=== PATIENT | female | born 1995 | race Two or more races ===

== ENCOUNTER 2017-01-15 21:35 | Emergency (ER) | payer OTHER ==
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
[2017-01-15] MEDS ORDERED: ONDANSETRON 4 MG/2 ML VIAL IVP ONE (21:37)
[2017-01-15] MEDS ORDERED: NS 1,000 ML IV ONE (21:37)
[2017-01-15] MEDS ORDERED: ceFAZolin 2 GM/DEXTROSE 100 ML IV ONE (21:38)
[2017-01-15 21:49] LABS: % IMMATURE GRANULYOCYTES 0.3 % (0.0-1.1); ABSOLUTE IMMATURE GRANULOCYTES 0.04 10^3/uL (0.00-0.10); ADD DIFF? NO; ADD MORPH? NO; ADD SCAN? NO; ATYPICAL LYMPHOCYTE FLAG 0 (0-99); FRAGMENT RBC FLAG 0 (0-99); HEMATOCRIT 44.5 % (38.0-47.0); HEMOGLOBIN 14.7 g/dL (12.6-16.3); LEFT SHIFT FLG 0 (0-99); LIPEMIA HEMOLYSIS FLAG 80 (0-99); MEAN CELL HEMOGLOBIN 29.8 pg (27.9-34.1); MEAN CELL VOLUME 90.3 fL (81.5-99.8); MEAN PLATELET VOLUME 10.5 fL (8.7-11.7); PLATELET CLUMPS FLAG 10 (0-99); PLATELET COUNT 335 10^3/uL (150-400); RED BLOOD CELL COUNT 4.93 10^6/uL (4.18-5.33); RED CELL DISTRIBUTION WIDTH 12.7 % (11.5-15.2)
[2017-01-15 21:50] VITALS: RESP 18; O2SAT 97
[2017-01-15] MEDS ORDERED: ACETAMINOPHEN 160 MG/5 ML UDCUP ONE (21:52)
[2017-01-15 22:05] LABS: ANION GAP 16 mEq/L (8-16); CARBON DIOXIDE 21 mEq/l (22-31); CHLORIDE 102 mEq/L (97-110); CREATININE 0.8 mg/dL (0.6-1.0); GLOMERULAR FILTRATION RATE > 60; GLUCOSE 91 mg/dL (70-100); SODIUM 139 mEq/L (134-144)
[2017-01-15] MEDS: HYDROmorphONE/DILAUDID 1 MG/ML INJ IVP ONE ×2 (22:08→23:53)
[2017-01-15] MEDS ORDERED: IOPAMIDOL (ISOVUE-300) 100 ML BTL ONE (22:24)
[2017-01-15] MEDS ORDERED: HYDROmorphONE/DILAUDID 1 MG/ML INJ ONE (23:51)
[2017-01-15] MEDS ORDERED: HYDROmorphONE/DILAUDID 1 MG/ML INJ IVP ONE (23:51)
[2017-01-16] MEDS ORDERED: KETOROLAC 15 MG/1 ML SDV IVP ONE (00:33)
[2017-01-16 01:20] VITALS: BP 130/67; PULSE 77; TEMP 97.7
[2017-01-16] MEDS ORDERED: CEPHALEXIN 500 MG CAP PO ONE (01:22)
[2017-01-16] MEDS ORDERED: CEPHALEXIN 500MG PREPACK#4 BTL TAKEHOME ONE (01:22)
== END 2017-01-16 01:48 | disposition home or self-care (01) ==
LOC: EDUNIT#
PROC: 0HQLXZZ Repair Left Lower Leg Skin, External Approach (ICD-10-PCS; principal; 2017-01-15)
DX: S91.021A Laceration with foreign body, right ankle, initial encounter (principal); T14.8 Other injury of unspecified body region; E86.9 Volume depletion, unspecified; V49.50XA Passenger injured in collision with unspecified motor vehicles in traffic accident, initial encounter; Y92.410 Unspecified street and highway as the place of occurrence of the external cause
CPT/HCPCS: 96365; J0690; J1170; J1885; J2405; L4386; Q9967

== ENCOUNTER 2017-01-18 20:52 | Emergency (ER) | payer OTHER ==
[2017-01-18 21:15] VITALS: RESP 16; TEMP 98.1; O2SAT 97
[2017-01-18] MEDS ORDERED: CEPHALEXIN 500 MG CAP PO ONE (22:34)
[2017-01-18] MEDS ORDERED: SULFAMETHOX/TMP 800/160 MG 1 TAB PO ONE (22:34)
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
[2017-01-18 22:50] VITALS: BP 132/78; PULSE 73
== END 2017-01-18 22:50 | disposition home or self-care (01) ==
DX: T81.4XXA Infection following a procedure, initial encounter (principal); Y82.8 Other medical devices associated with adverse incidents

== ENCOUNTER 2017-01-22 17:23 | Inpatient (IN) | payer OTHER ==
[2017-01-22] MEDS ORDERED: NS 1,000 ML IV ONE (18:11)
[2017-01-22] MEDS ORDERED: ERTAPENEM 1 GM in NS 100 ML IV ONE (18:11)
[2017-01-22] MEDS ORDERED: VANCOMYCIN 1.25 GM in D5W 250 ML IV ONE (18:13)
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
[2017-01-22 18:40] LABS: % IMMATURE GRANULYOCYTES 0.3 % (0.0-1.1); ABSOLUTE IMMATURE GRANULOCYTES 0.02 10^3/uL (0.00-0.10); ADD DIFF? NO; ADD MORPH? NO; ADD SCAN? NO; ATYPICAL LYMPHOCYTE FLAG 20 (0-99); FRAGMENT RBC FLAG 0 (0-99); HEMATOCRIT 42.2 % (38.0-47.0); HEMOGLOBIN 13.8 g/dL (12.6-16.3); LEFT SHIFT FLG 0 (0-99); LIPEMIA HEMOLYSIS FLAG 80 (0-99); MEAN CELL HEMOGLOBIN 29.4 pg (27.9-34.1); MEAN CELL HEMOGLOBIN CONCENTR. 32.7 g/dL (32.4-36.7); PLATELET CLUMPS FLAG 0 (0-99); PLATELET COUNT 349 10^3/uL (150-400); RED BLOOD CELL COUNT 4.69 10^6/uL (4.18-5.33); RED CELL DISTRIBUTION WIDTH 12.5 % (11.5-15.2)
[2017-01-22 19:00] LABS: ANION GAP 16 mEq/L (8-16); CALCIUM 9.6 mg/dL (8.5-10.4); CARBON DIOXIDE 21 mEq/l (22-31); CHLORIDE 104 mEq/L (97-110); CREATININE 0.7 mg/dL (0.6-1.0); GLOMERULAR FILTRATION RATE > 60; GLUCOSE 72 mg/dL (70-100); SODIUM 141 mEq/L (134-144)
[2017-01-22] MEDS ORDERED: ACETAMINOPHEN 325 MG TAB PO PRN (21:42)
[2017-01-22] MEDS ORDERED: oxyCODONE IR 5 MG TAB PO PRN (21:42)
[2017-01-22] MEDS ORDERED: ONDANSETRON 4 MG/2 ML VIAL IVP PRN (21:42)
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
[2017-01-23] MEDS ORDERED: VANCOMYCIN 1.25 GM in D5W 250 ML IV SCH (09:00)
[2017-01-23] MEDS: IBUPROFEN 800 MG TAB PO PRN ×2 (09:25→14:51)
[2017-01-23] MEDS: ENOXAPARIN 40 MG/0.4 ML SYR SC SCH (11:45)
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
[2017-01-24] MEDS: VANCOMYCIN 1.25 GM in D5W 250 ML IV SCH ×2 (02:43→16:03)
[2017-01-24 05:08] LABS: % IMMATURE GRANULYOCYTES 0.4 % (0.0-1.1); ABSOLUTE IMMATURE GRANULOCYTES 0.03 10^3/uL (0.00-0.10); ADD DIFF? NO; ADD MORPH? NO; ADD SCAN? NO; ATYPICAL LYMPHOCYTE FLAG 20 (0-99); FRAGMENT RBC FLAG 0 (0-99); HEMATOCRIT 36.9 % (38.0-47.0); LEFT SHIFT FLG 0 (0-99); LIPEMIA HEMOLYSIS FLAG 80 (0-99); MEAN CELL HEMOGLOBIN 29.2 pg (27.9-34.1); MEAN CELL HEMOGLOBIN CONCENTR. 32.5 g/dL (32.4-36.7); MEAN CELL VOLUME 89.8 fL (81.5-99.8); MEAN PLATELET VOLUME 10.1 fL (8.7-11.7); PLATELET CLUMPS FLAG 0 (0-99); PLATELET COUNT 306 10^3/uL (150-400); RED BLOOD CELL COUNT 4.11 10^6/uL (4.18-5.33); RED CELL DISTRIBUTION WIDTH 12.4 % (11.5-15.2)
[2017-01-24 05:34] LABS: ALANINE AMINOTRANSFERASE 30 IU/L (9-52); ALBUMIN 3.2 g/dL (3.5-5.0); ALKALINE PHOSPHATASE 47 IU/L (38-126); ASPARTATE AMINOTRANSFERASE 20 IU/L (14-46); BILIRUBIN,TOTAL 0.7 mg/dL (0.1-1.4); CARBON DIOXIDE 25 mEq/l (22-31); CHLORIDE 104 mEq/L (97-110); CREATININE 0.7 mg/dL (0.6-1.0); GLOMERULAR FILTRATION RATE > 60; GLUCOSE 93 mg/dL (70-100); SODIUM 137 mEq/L (134-144); TOTAL PROTEIN 6.2 g/dL (6.3-8.2)
[2017-01-24 06:06] LABS: ANION GAP 8 mEq/L (8-16); POTASSIUM 4.5 mEq/L (3.5-5.2)
[2017-01-24 08:09] VITALS: RESP 16
--- NOTE | 2017-01-24 08:59 | HOSPPROG ---
Hospitalist Progress Note Assessment/Plan: patient is a 21-year-old female who presented the emergency room with ankle pain. Today is my 1st encounter with the patient. Chart reviewed. * Left foot cellulitis superimposed with bruising on vancomycin * tendon tear, acute talofibular tear status post trauma will need outpatient follow-up with Orthopedics once the swelling improves Disposition. dc home today on keflex/ she will need close f/u with an orthopedic surgeon Subjective: Josselyn said her foot is still very tender when getting oob. Objective: Vital Signs Temp Pulse Resp BP Pulse Ox 36.8 C 68 16 107/56 L 96 01/24/17 08:07 01/24/17 08:07 01/24/17 08:07 01/24/17 08:07 01/24/17 08:07 Laboratory Results 01/24/17 04:41 01/24/17 04:41 01/23/17 01/24/17 01/25/17 05:59 05:59 05:59 Intake Total 600 320 Balance 600 320 - Physical Exam Constitutional: no apparent distress, appears nourished, uncomfortable Eyes: PERRL Ears, Nose, Mouth, Throat: hearing normal Cardiovascular: regular rate and rhythym Respiratory: no respiratory distress Gastrointestinal: normoactive bowel sounds Skin: warm, other (right foot with redness/ some swelling/ sutures well approximated with min draingage/ some dried blood on the dressing) Musculoskeletal: generalized weakness Neurologic: AAOx3 Psychiatric: interacting appropriately ICD10 Worksheet Patient Problems: Problems Problem Status Onset Cellulitis of left foot Acute
[2017-01-24] MEDS: ENOXAPARIN 40 MG/0.4 ML SYR SC SCH (10:50)
[2017-01-24 11:21] VITALS: BP 102/48; PULSE 97; TEMP 98.4; O2SAT 97
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
--- NOTE | 2017-01-24 15:29 | ASMTCMCOM ---
CM Note CM Note Notes: Patient to d/c home independently today. Patient can take her antibiotics P.O. No further d/c needs. Date Signed: 01/24/2017 03:28 PM Electronically Signed By:Helena Dorman
[2017-01-24] MEDS: IBUPROFEN 800 MG TAB PO PRN (16:28)
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
== END 2017-01-24 16:47 | disposition home or self-care (01) | DRG 603 ==
LOC: F3E 20:52
PROVIDERS: ADMIT Family Medicine; ATTEND Internal Medicine
DX: L03.116 Cellulitis of left lower limb (principal); S93.492A Sprain of other ligament of left ankle, initial encounter; S90.32XD Contusion of left foot, subsequent encounter; S80.11XD Contusion of right lower leg, subsequent encounter; S91.022D Laceration with foreign body, left ankle, subsequent encounter; T36.8X5A Adverse effect of other systemic antibiotics, initial encounter; L53.9 Erythematous condition, unspecified; V49.9XXD Car occupant (driver) (passenger) injured in unspecified traffic accident, subsequent encounter
CPT/HCPCS: 96365; J1200; J1335; J1650; J3370

== ENCOUNTER 2017-04-14 11:15 | Emergency (ER) | payer MEDICAID, OTHER ==
--- NOTE | 2017-04-14 11:33 | EDPHY ---
H & P Time Seen by Provider: 04/14/17 11:32 HPI/ROS: HPI: This is a 21-year-old female who presents with Chief Complaint: Vaginal spotting Location: Vaginal Quality: spotting Duration: 5 days Signs and Symptoms: no fever, no nausea, no vomiting, no hematemesis, no blood in stool, no abdominal bloating, no diarrhea, no back pain, no urinary symptoms , no vaginal discharge, no abdominal pain, + pelvic cramping Timing: Intermittent episodes Severity: Mild Context: G1 presents with positive test this Tuesday, LMP 03/25/17, presents with vaginal spotting that started Tuesday, having to change her underwear once per day, has not noticed any clots with pelvic cramping started yesterday. Patient adamantly denies abdominal pain, nausea, vomiting, vaginal discharge, concern for STDs. Patient is unemployed due to a left foot injury and has not had any recent strenuous activity. Denies recent sexual intercourse within the last 7 days. She is unsure of her blood type. Patient has no history of abdominal surgeries. She has not started a vitamin. Mother and sister at bedside and extremely excited about this . Modifying Factors: None Comment: ROS: see HPI Constitutional: No fever, no chills, no weight loss Eyes: No blurred vision Respiratory: No shortness of breath, no cough Cardiovascular: No chest pain, no palpitations Gastrointestinal: No nausea, no vomiting, no diarrhea, no hematemesis, no blood in stool Genitourinary: No dysuria, no blood in urine Extremities: No myalgias, no edema Neurologic: No weakness, no numbness Skin: No rashes, no petechiae Hematologic: No bruising, no bleeding MEDICAL/SURGICAL/SOCIAL HISTORY: Medical history: Generally healthy. Does not take any regular medications. Surgical history: Denies Social history: Lives with her family, strong family support CONSTITUTIONAL: Well-developed well-nourished female, well appearing, awake and alert, no obvious distress HEENT: Atraumatic and normocephalic, PERRL, EOMI. Tympanic membranes clear. Oropharynx clear, no exudate and moist pink mucosa. Airway patent. No lymphadenopathy. No meningismus. Cardiovascular: Normal S1/S2, regular rate, regular rhythm, without murmur rub or gallop. PULMONARY/CHEST: Symmetrical and nontender. Clear to auscultation bilaterally. Good air movement. No accessory muscle usage. ABDOMEN: Soft, nondistended, nontender, no rebound, no guarding, no peritoneal signs, no masses or organomegaly. No CVAT. PELVIC: normal external genitalia, normal cervix, cervical os was closed, no cervical motion tenderness, no adnexal mass, yellowish discharge, no bleeding. 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 EXTREMITIES: 2/2 pulses, strength 5/5, no deformities, no clubbing, no cyanosis or edema. NEUROLOGICAL: no focal neuro deficits. GCS 15. SKIN: Warm and dry, no erythema. no rash. Good capillary refill. Source: Patient, Family (Sister) Exam Limitations: No limitations - Medical/Surgical History Hx Asthma: No Hx Chronic Respiratory Disease: No Hx Diabetes: No Hx Cardiac Disease: No Hx Renal Disease: No Hx Cirrhosis: No Hx Alcoholism: No Hx HIV/AIDS: No Hx Splenectomy or Spleen Trauma: No Other PMH: denies - Social History Smoking Status: Never smoked Constitutional: Initial Vital Signs Temperature (C) 36.9 C 04/14/17 12:49 Heart Rate 75 04/14/17 12:49 Respiratory Rate 18 04/14/17 12:49 Blood Pressure 114/63 04/14/17 12:49 O2 Sat (%) 95 04/14/17 12:49 O2 Delivery Mode Room Air Allergies/Adverse Reactions: No Allergies [NKDA] Allergy (Verified 01/23/17 08:10) Home Medications: Medication Instructions Recorded Hydrocodone/APAP 5/325 [[place] 1 - 2 tab PO Q4H PRN #10 tab 01/16/17 5/325 (*)] Ibuprofen [Motrin (*)] 800 mg PO Q6 PRN 01/22/17 Cephalexin [Keflex (*)] 500 mg PO QID #40 cap 01/24/17 #92/Iron/FA #8/Ps-Dha 1 each PO DAILY #12 cap.ir. 04/14/17 [Enbrace Hr Softgel] Medical Decision Making - Diagnostics Imaging Results: Imaging Impressions Obstetrics Ultrasound 04/14/17 11:39 Impression: There is a small complex cystic structure in the right endometrial horn in this patient with an arcuate uterus. There is no viable intrauterine confirmation at this time and as such, an ectopic cannot be excluded. There is a 2.0 cm right ovarian hypoechoic corpus luteum cyst versus hemorrhagic cyst of other etiology, with no evidence of torsion. A trace amount of free fluid in the cul-de-sac is observed. Recommendations: Close clinical correlation with follow-up sonography in 14-21 days (unless otherwise indicated), and serial quantitative beta hCG monitoring. Findings were discussed with Vickie Gutierrez PA-C at 13:14, on 04/14/2017. ED Course/Re-evaluation: Labs, urinalysis, IV fluids, ultrasound, pelvic exam ordered Cervical os is closed; yellowish discharge noted; gonorrhea, chlamydia wet mount , BV swabs obtained beta HCG 62027 Called by radiologist who advised unable to determine if there is a viable intrauterine but it is very early in the . 2 cm right ovarian corpus luteum cyst. No signs of ovarian torsion, free fluid in the pelvis. Urinalysis shows 1+ LE and 1+ ketones; patient received 1 L fluids; sent for urine culture; asymptomatic; will not start antibiotic prophylaxis Vaginal swabs results are pending. Patient follows with [facility] and knows to call for follow-up appointment within 3 days for repeat serial beta HCG levels and repeat examination. Differential Diagnosis: Abdominal pain in a female including but not limited to ectopic , miscarriage, urinary tract infection. - Data Points Laboratory Results: Laboratory Results 04/14/17 11:35 04/14/17 11:35 04/14/17 04/14/17 04/14/17 12:55 12:00 12:00 WBC RBC Hgb Hct MCV MCH MCHC RDW Plt Count MPV Neut % (Auto) Lymph % (Auto) [place] % (Auto) Eos % (Auto) Baso % (Auto) Nucleat RBC Rel Count Absolute Neuts (auto) Absolute Lymphs (auto) Absolute Monos (auto) Absolute Eos (auto) Absolute Basos (auto) Absolute Nucleated RBC Immature Gran % Immature Gran # Sodium Potassium Chloride Carbon Dioxide Anion Gap BUN Creatinine Estimated GFR Glucose Calcium Beta HCG, Qual Beta HCG, Quant Urine Color YELLOW Urine Appearance CLEAR Urine pH 5.0 (5.0-7.5) Ur Specific [place] 1.014 (1.002-1.030) Urine Protein NEGATIVE (NEGATIVE) Urine Ketones TRACE H (NEGATIVE) Urine Blood 1+ H (NEGATIVE) Urine Nitrate NEGATIVE (NEGATIVE) Urine Bilirubin NEGATIVE (NEGATIVE) Urine Urobilinogen NEGATIVE EU EU (0.2-1.0) Ur Leukocyte Esterase 1+ H (NEGATIVE) Urine RBC 1-3 /hpf /hpf (0-3) Urine WBC Not Reported Ur Epithelial Cells TRACE /lpf /lpf (NONE-1+) Urine Mucus TRACE /lpf /lpf (NONE-1+) Urine Glucose NEGATIVE (NEGATIVE) Trichomonas (Wet Prep) NO YEAST Erica species DNA Pending C.trachomatis RNA (TMA) Pending [place] DNA Probe Pending N.gonorrhoeae RNA (TMA) Pending Trichomonas DNA Probe Pending Patient ABO/Rh 04/14/17 04/14/17 04/14/17 12:00 11:35 11:35 WBC RBC Hgb Hct MCV MCH MCHC RDW Plt Count MPV Neut % (Auto) Lymph % (Auto) [place] % (Auto) Eos % (Auto) Baso % (Auto) Nucleat RBC Rel Count Absolute Neuts (auto) Absolute Lymphs (auto) Absolute Monos (auto) Absolute Eos (auto) Absolute Basos (auto) Absolute Nucleated RBC Immature Gran % Immature Gran # Sodium 140 mEq/L mEq/L (134-144) Potassium 4.0 mEq/L mEq/L (3.5-5.2) Chloride 107 mEq/L mEq/L (97-110) Carbon Dioxide 20 mEq/l L mEq/l (22-31) Anion Gap 13 mEq/L mEq/L (8-16) BUN 7 mg/dL mg/dL (7-23) Creatinine 0.6 mg/dL mg/dL (0.6-1.0) Estimated GFR > 60 Glucose 75 mg/dL mg/dL (70-100) Calcium 9.0 mg/dL mg/dL (8.5-10.4) Beta HCG, Qual POSITIVE Beta HCG, Quant 86967.00 mIU/mL H mIU/mL (0.00-4.83) Urine Color Urine Appearance Urine pH Ur Specific [place] Urine Protein Urine Ketones Urine Blood Urine Nitrate Urine Bilirubin Urine Urobilinogen Ur Leukocyte Esterase Urine RBC Urine WBC Ur Epithelial Cells Urine Mucus Urine Glucose Trichomonas (Wet Prep) Erica species DNA C.trachomatis RNA (TMA) Gardnerella DNA Probe N.gonorrhoeae RNA (TMA) Trichomonas DNA Probe Patient ABO/Rh A POSITIVE 04/14/17 11:35 WBC 7.38 10^3/uL 10^3/uL (3.80-9.50) RBC 4.57 10^6/uL 10^6/uL (4.18-5.33) Hgb 13.5 g/dL g/dL (12.6-16.3) Hct 39.9 % % (38.0-47.0) MCV 87.3 fL fL (81.5-99.8) MCH 29.5 pg pg (27.9-34.1) MCHC 33.8 g/dL g/dL (32.4-36.7) RDW 13.0 % % (11.5-15.2) Plt Count 285 10^3/uL 10^3/uL (150-400) MPV 9.7 fL fL (8.7-11.7) Neut % (Auto) 63.4 % % (39.3-74.2) Lymph % (Auto) 25.7 % % (15.0-45.0) [place] % (Auto) 8.7 % % (4.5-13.0) Eos % (Auto) 1.1 % % (0.6-7.6) Baso % (Auto) 0.7 % % (0.3-1.7) Nucleat RBC Rel Count 0.0 % % (0.0-0.2) Absolute Neuts (auto) 4.68 10^3/uL 10^3/uL (1.70-6.50) Absolute Lymphs (auto) 1.90 10^3/uL 10^3/uL (1.00-3.00) Absolute Monos (auto) 0.64 10^3/uL 10^3/uL (0.30-0.80) Absolute Eos (auto) 0.08 10^3/uL 10^3/uL (0.03-0.40) Absolute Basos (auto) 0.05 10^3/uL 10^3/uL (0.02-0.10) Absolute Nucleated RBC 0.00 10^3/uL 10^3/uL (0-0.01) Immature Gran % 0.4 % % (0.0-1.1) Immature Gran # 0.03 10^3/uL 10^3/uL (0.00-0.10) Sodium Potassium Chloride Carbon Dioxide Anion Gap BUN Creatinine Estimated GFR Glucose Calcium Beta HCG, Qual Beta HCG, Quant Urine Color Urine Appearance Urine pH Ur Specific [place] Urine Protein Urine Ketones Urine Blood Urine Nitrate Urine Bilirubin Urine Urobilinogen Ur Leukocyte Esterase Urine RBC Urine WBC Ur Epithelial Cells Urine Mucus Urine Glucose Trichomonas (Wet Prep) Erica species DNA C.trachomatis RNA (TMA) Gardnerella DNA Probe N.gonorrhoeae RNA (TMA) Trichomonas DNA Probe Patient ABO/Rh Medications Given: Discontinued Medications Sodium Chloride (Ns) 1,000 mls @ 0 mls/hr IV ONCE ONE; Wide Open PRN Reason: Protocol Stop: 04/14/17 11:40 Last Admin: 04/14/17 12:21 Dose: 1,000 mls Departure - Departure Disposition: Home, Routine, Self-Care Clinical Impression: First trimester , Threatened miscarriage in early Condition: Good Instructions: Threatened Miscarriage (ED) Additional Instructions: Please observe pelvic rest. This includes no sexual intercourse, tampon insertion, douching, etc. Please drink a minimum of #8, 8 oz fluids per day to prevent dehydration. Avoid any moderate to aggressive physical activity. Call [facility] tomorrow for follow-up appointment within 3-7 days. They will repeat your serum beta HCG and re-evaluate. Your urinalysis was sent for urine culture today as it does some abnormalities but no clear indication of infection. The emergency room will contact you if your urine cultures are positive and advised if antibiotics are needed. Vaginal swabs for infection were sent for culture today. If any of these are positive, the emergency room will contact you. Start taking vitamins daily. Referrals: Theresa Mcgee MD [Medical Doctor] - As per Instructions Prescriptions: #92/Iron/FA #8/Ps-Dha [Enbrace Hr Softgel] 1 each PO DAILY #12 cap.ir.
[2017-04-14] MEDS ORDERED: NS 1,000 ML IV ONE (11:39)
[2017-04-14 11:50] LABS: % IMMATURE GRANULYOCYTES 0.4 % (0.0-1.1); ABSOLUTE IMMATURE GRANULOCYTES 0.03 10^3/uL (0.00-0.10); ADD DIFF? NO; ADD MORPH? NO; ADD SCAN? NO; ATYPICAL LYMPHOCYTE FLAG 10 (0-99); FRAGMENT RBC FLAG 0 (0-99); HEMATOCRIT 39.9 % (38.0-47.0); HEMOGLOBIN 13.5 g/dL (12.6-16.3); LEFT SHIFT FLG 0 (0-99); LIPEMIA HEMOLYSIS FLAG 90 (0-99); MEAN CELL HEMOGLOBIN 29.5 pg (27.9-34.1); MEAN CELL HEMOGLOBIN CONCENTR. 33.8 g/dL (32.4-36.7); MEAN CELL VOLUME 87.3 fL (81.5-99.8); MEAN PLATELET VOLUME 9.7 fL (8.7-11.7); PLATELET CLUMPS FLAG 0 (0-99); PLATELET COUNT 285 10^3/uL (150-400); RED BLOOD CELL COUNT 4.57 10^6/uL (4.18-5.33)
[2017-04-14 12:06] LABS: ANION GAP 13 mEq/L (8-16); CARBON DIOXIDE 20 mEq/l (22-31); CHLORIDE 107 mEq/L (97-110); CREATININE 0.6 mg/dL (0.6-1.0); GLOMERULAR FILTRATION RATE > 60; GLUCOSE 75 mg/dL (70-100); SODIUM 140 mEq/L (134-144)
[2017-04-14 12:50] VITALS: RESP 18; TEMP 98.4
[2017-04-14 13:07] LABS: COLOR YELLOW; LEUKOCYTE ESTERASE,URINE 1+ (NEGATIVE); NITRITE,URINE NEGATIVE (NEGATIVE)
[2017-04-14 13:15] LABS: MUCUS TRACE /lpf (NONE-1+)
[2017-04-14 13:27] VITALS: BP 120/85; PULSE 85; O2SAT 98
[2017-04-15 15:22] LABS: CHLAMYDIA AMPLIFICATION GENPRB NEGATIVE (NEGATIVE)
== END 2017-04-14 13:39 | disposition home or self-care (01) ==
DX: O20.0 Threatened abortion (principal); E86.9 Volume depletion, unspecified; Z3A.01 Less than 8 weeks gestation of pregnancy

== ENCOUNTER 2017-05-21 04:11 | Emergency (ER) | payer SELFPAY ==
[2017-05-21] MEDS ORDERED: NS 1,000 ML IV ONE (04:12)
--- NOTE | 2017-05-21 04:14 | EDPHY ---
H & P HPI/ROS: HPI CHIEF COMPLAINT: Vaginal bleeding in . HISTORY OF PRESENT ILLNESS: Patient is a 21-year-old female, she presents emergency room as she has been having some vaginal bleeding and pelvic cramping , she is currently 6 weeks . Patient worse that she is 6 weeks . For the past 4 days she has had some bleeding vaginally. Tonight it was more heavy. She went through 1 pad. Distally around 3:30 a.m. or approximately an hour ago she developed vaginal bleeding with large amounts of clot. And some pelvic cramping. She called [facility] and they told her this was rather normal however due to the cramping and bleeding she decided come the emergency room for evaluation. This is her 1st . She denies any fever. Denies significant abdominal pain she does have some lower pelvic cramping. No vomiting. Past Medical History: Denies medical history Past Surgical History: Denies surgical history Social History: Denies daily use drugs alcohol tobacco products. Family History: Noncontributory ROS REVIEW OF SYSTEMS: A comprehensive 10 point review of systems is otherwise negative aside from elements mentioned in the history of present illness. Exam Constitutional triage nursing summary reviewed, vital signs reviewed, awake/ alert. Eyes normal conjunctivae and sclera, EOMI, PERRLA. HENT normal inspection, atraumatic, moist mucus membranes, no epistaxis, neck supple/ no meningismus, no raccoon eyes. Respiratory clear to auscultation bilaterally, normal breath sounds, no respiratory distress, no wheezing. Cardiovascular rate normal, regular rhythm, no murmur, no edema, distal pulses normal. Gastrointestinal soft, non-tender, no rebound, no guarding, normal bowel sounds, no distension, no pulsatile mass. Genitourinary no CVA tenderness. Musculoskeletal no midline vertebral tenderness, full range of motion, no calf swelling, no tenderness of extremities, no meningismus, good pulses, neurovascularly intact. Skin pink, warm, & dry, no rash, skin atraumatic. Neurologic awake, alert and oriented x 3, AAOx3, moves all 4 extremities equally, motor intact, sensory intact, CN II-XII intact, normal cerebellar, normal vision, normal speech. Psychiatric normal mood/affect. Heme/Lymph/Immune no lymphadenopathy. Differential Diagnosis: Includes but is not limited to in a particular order threatened miscarriage, ectopic , bleeding in first-trimester , urinary tract infection Medical Decision Making: Plan for this patient IV establishment with blood draw , check CBC and H&H, check Rh factor, ultrasound OB less than 14 weeks, gentle IV hydration and re-evaluate. Re-evaluation: Ultrasound of the pelvis: This is called to me by Dr. Aguirre, this shows no IUP. The endometrial stripe is thickened. There is no evidence of retained products. No evidence of free fluid or other visualize mass. Given the patient's description of vaginal bleeding and passing of large amounts of clot and pelvic cramping this is most likely it miscarriage given that we do not visualize anything on ultrasound. However will need to follow serial HCGs to make sure there are not increasing at risk for ectopic since we have not confirmed an IUP. Patient is Rh positive. Beta HCG pending. B HCK 0550AM: will consult OB. 06: Discussed ectopic precautions with the patient. She understands have her HCG on Tuesday recheck in our lab. Prescription provided for this. Additionally she understands to follow up with Dr. Aguilar's office. Call Tuesday for an appointment. 06: Spoke with Dr. Aguilar about this case. Recommend repeat HCG on Tuesday. Recommends follow up with them. Call for appointment. Source: Patient - Medical/Surgical History Hx Asthma: No Hx Chronic Respiratory Disease: No Hx Diabetes: No Hx Cardiac Disease: No Hx Renal Disease: No Hx Cirrhosis: No Hx Alcoholism: No Hx HIV/AIDS: No Hx Splenectomy or Spleen Trauma: No Other PMH: denies - Social History Smoking Status: Never smoked Constitutional: Initial Vital Signs Temperature (C) 37.0 C 05/21/17 04:15 Heart Rate 78 05/21/17 04:15 Respiratory Rate 16 05/21/17 04:15 Blood Pressure 130/76 H 05/21/17 04:15 O2 Sat (%) 99 05/21/17 04:15 O2 Delivery Mode Room Air Allergies/Adverse Reactions: No Allergies [NKDA] Allergy (Verified 01/23/17 08:10) Home Medications: Medication Instructions Recorded #92/Iron/FA #8/Ps-Dha 1 each PO DAILY #12 cap.tommy. 04/14/17 [Enbrace Hr Softgel] Medical Decision Making - Data Points Laboratory Results: Laboratory Results 05/21/17 04:26 05/21/17 04:26 05/21/17 05/21/17 05/21/17 04:46 04:26 04:26 WBC RBC Hgb Hct MCV MCH MCHC RDW Plt Count MPV Neut % (Auto) Lymph % (Auto) [place] % (Auto) Eos % (Auto) Baso % (Auto) Nucleat RBC Rel Count Absolute Neuts (auto) Absolute Lymphs (auto) Absolute Monos (auto) Absolute Eos (auto) Absolute Basos (auto) Absolute Nucleated RBC Immature Gran % Immature Gran # Sodium 142 mEq/L mEq/L (134-144) Potassium 4.1 mEq/L mEq/L (3.5-5.2) Chloride 109 mEq/L mEq/L (97-110) Carbon Dioxide 20 mEq/l L mEq/l (22-31) Anion Gap 13 mEq/L mEq/L (8-16) BUN 7 mg/dL mg/dL (7-23) Creatinine 0.5 mg/dL L mg/dL (0.6-1.0) Estimated GFR > 60 Glucose 92 mg/dL mg/dL (70-100) Calcium 9.2 mg/dL mg/dL (8.5-10.4) Beta HCG, Quant 48531.00 mIU/mL H mIU/mL (0.00-4.83) Urine Color RED Urine Appearance MODERATELY TURBID Urine pH 6.0 (5.0-7.5) Ur Specific [place] 1.020 (1.002-1.030) Urine Protein 2+ H (NEGATIVE) Urine Ketones NEGATIVE (NEGATIVE) Urine Blood 3+ H (NEGATIVE) Urine Nitrate NEGATIVE (NEGATIVE) Urine Bilirubin NEGATIVE (NEGATIVE) Urine Urobilinogen NEGATIVE EU EU (0.2-1.0) Ur Leukocyte Esterase NEGATIVE (NEGATIVE) Urine RBC 50-182 /hpf H /hpf (0-3) Urine WBC 25-50 /hpf H /hpf (0-3) Ur Epithelial Cells NONE SEEN /lpf /lpf (NONE-1+) Urine Mucus TRACE /lpf /lpf (NONE-1+) Urine Glucose NEGATIVE (NEGATIVE) Patient ABO/Rh A POSITIVE 05/21/17 04:26 WBC 9.57 10^3/uL H 10^3/uL (3.80-9.50) RBC 4.71 10^6/uL 10^6/uL (4.18-5.33) Hgb 13.8 g/dL g/dL (12.6-16.3) Hct 40.8 % % (38.0-47.0) MCV 86.6 fL fL (81.5-99.8) MCH 29.3 pg pg (27.9-34.1) MCHC 33.8 g/dL g/dL (32.4-36.7) RDW 12.8 % % (11.5-15.2) Plt Count 322 10^3/uL 10^3/uL (150-400) MPV 9.6 fL fL (8.7-11.7) Neut % (Auto) 60.0 % % (39.3-74.2) Lymph % (Auto) 28.7 % % (15.0-45.0) [place] % (Auto) 9.7 % % (4.5-13.0) Eos % (Auto) 0.9 % % (0.6-7.6) Baso % (Auto) 0.4 % % (0.3-1.7) Nucleat RBC Rel Count 0.0 % % (0.0-0.2) Absolute Neuts (auto) 5.73 10^3/uL 10^3/uL (1.70-6.50) Absolute Lymphs (auto) 2.75 10^3/uL 10^3/uL (1.00-3.00) Absolute Monos (auto) 0.93 10^3/uL H 10^3/uL (0.30-0.80) Absolute Eos (auto) 0.09 10^3/uL 10^3/uL (0.03-0.40) Absolute Basos (auto) 0.04 10^3/uL 10^3/uL (0.02-0.10) Absolute Nucleated RBC 0.00 10^3/uL 10^3/uL (0-0.01) Immature Gran % 0.3 % % (0.0-1.1) Immature Gran # 0.03 10^3/uL 10^3/uL (0.00-0.10) Sodium Potassium Chloride Carbon Dioxide Anion Gap BUN Creatinine Estimated GFR Glucose Calcium Beta HCG, Quant Urine Color Urine Appearance Urine pH Ur Specific [place] Urine Protein Urine Ketones Urine Blood Urine Nitrate Urine Bilirubin Urine Urobilinogen Ur Leukocyte Esterase Urine RBC Urine WBC Ur Epithelial Cells Urine Mucus Urine Glucose Patient ABO/Rh Medications Given: Discontinued Medications Sodium Chloride (Ns) 1,000 mls @ 0 mls/hr IV EDNOW ONE; Wide Open PRN Reason: Protocol Stop: 05/21/17 04:13 Last Admin: 05/21/17 04:25 Dose: 1,000 mls Departure - Departure Disposition: Home, Routine, Self-Care Clinical Impression: Miscarriage Condition: Good Instructions: Threatened Miscarriage (ED), Ectopic (ED) Additional Instructions: 1. Return emergency room if you have worsening abdominal pain or significant vaginal bleeding. 2. Follow up with OBGYN. 3. You should have your hormone level HCG recheck in the next 3-5 days. Make sure this is going down and not up. 4. You may have this recheck by OBGYN or your primary care doctor. 5. Additionally return emergency room if develops worsening vaginal bleeding or abdominal pain fever vomiting. 6. You Beta HCG 14230. 7. He should call Dr. Aguilar's Office On Tuesday. Also should have your HCG re- checked on Tuesday. Prescription provided for this. Referrals: NONE *PRIMARY CARE P,. [Primary Care Provider] - As per Instructions Arianna Delgado MD [Medical Doctor] - As per Instructions Luz Marina Aguilar DO [Doctor of Osteopathy] - As per Instructions
[2017-05-21 04:19] VITALS: RESP 16
[2017-05-21 04:46] LABS: PLATELET COUNT 322 10^3/uL (150-400)
[2017-05-21 06:28] VITALS: BP 102/50; PULSE 70; TEMP 97.9; O2SAT 95
== END 2017-05-21 06:42 | disposition home or self-care (01) ==
DX: O03.9 Complete or unspecified spontaneous abortion without complication (principal); Z3A.01 Less than 8 weeks gestation of pregnancy

== ENCOUNTER 2018-07-19 04:41 | Inpatient (IN) | payer MEDICAID ==
[2018-07-19] MEDS ORDERED: EPSOM SALT 454 GM TP PRN (05:20)
[2018-07-19] MEDS ORDERED: IBUPROFEN 600 MG TAB PO PRN (05:20)
[2018-07-19] MEDS ORDERED: LR 1,000 ML IV PRN (05:20)
[2018-07-19] MEDS ORDERED: LIDOCAINE 1% 300 MG/30 ML SDV SC PRN (05:20)
[2018-07-19] MEDS ORDERED: OXYTOCIN/RINGERS LACTATE 1,000 ML IV PRN (05:20)
[2018-07-19] MEDS ORDERED: OLIVE OIL 118 ML BTL MISC PRN (05:20)
[2018-07-19] MEDS ORDERED: MISOPROSTOL 200 MCG TAB PR PRN (05:20)
[2018-07-19 05:59] LABS: PLATELET COUNT 265 10^3/uL (150-400)
[2018-07-19] MEDS ORDERED: OLIVE OIL 118 ML BTL ONE (06:03)
[2018-07-19] MEDS ORDERED: LIDOCAINE 1% 300 MG/30 ML SDV ONE (06:03)
[2018-07-19] MEDS ORDERED: AMMONIA AROMATIC 1 EACH AMP IH ONE (06:04)
[2018-07-19] MEDS ORDERED: OXYTOCIN 10 UNIT/ML VIAL ONE (06:04)
[2018-07-19] MEDS ORDERED: MISOPROSTOL 200 MCG TAB ONE (06:04)
[2018-07-19] MEDS ORDERED: TERBUTALINE SULFATE 1 MG/ML VIAL ONE (06:04)
--- NOTE | 2018-07-19 09:04 | PDGENHP ---
History and Physical History and Physical: Care: [facility] HPI: Josselyn Verma is a 22 yo with IUP @ 37-6 weeks that presents to L&D with complaints of contractions since midnight. She denies any LOf, VB. she reports +FM. EDC: 08/03/18 which is based on LMP: 10/27/18 which is known and consistent with Ultrasound at 7 weeks. Her is complicated by: LEIDA@31wks, h/o ALISON III (LEEP), Partner (FOB) using methamphetamines Review of Systems: Constitutional: Denies any fever, chills, or fatigue HEENT: denies any visual changes, difficulty swallowing, hearing loss Cardiovascular: Denies any chest pain, palpitations, leg swelling Respiratory: denies any cough, wheezing, or shortness of breathe GI: Denies any nausea, vomiting, diarrhea, constipation : denies any dysuria, urgency, frequency, vaginal bleeding Musculoskeletal: denies any muscle or bone pain Skin: denies any rashes Neuro: denies any headache, seizures, lightheadedness, dizziness, or loss of consciousness Psychiatric: denies any depression, anxiety, or SI/HI thoughts HISTORY: Previous OB history: SAB 1 Past medical history: noncontributory Past surgical history: none Social: Denies any alcohol, tobacco, or drug use. Family history: Not relevant Medications: PNV Allergies (list reaction): NKDA LABS: Rh: A+ ABS: Neg Rubella: Immune HbsAg: NR HIV: NR VDRL: NR 1hr: 78 GC: Neg Chlamydia: Neg Pap: abnormal, LEEP done- CINIII, will repeat pap 2019 GBS: negative PHYSICAL EXAM: Constitutional: WN, A&Ox3 HEENT: normocephalic atraumatic, supple Skin: Warm, dry, intact Heart: RRR, no murmur Chest: CTA-B Abdomen: Soft, nontender, gravid SVE: 5/90/-1 Extremities: no edema, negative homans sign Neuro: grossly normal Psych: normal affect assessment: FHT baseline 145 +accels, no decels, moderate variability Contractions: toco q 4-5 Assessment: 1) 22yo with IUP@ 37-6wks 2) early labor 3) GBS negative 4) Cat 1 FHR tracing Plan: 1) Admit to L&D 2) expectant management 3) reassess 2-4hr/PRN 4) consider AROM Today's visit was approximately 30 min, of which >50% of visit 20 min, was spent face to face with pt on direct counseling/coordination of care.
--- NOTE | 2018-07-19 12:26 | OBPROG ---
Labor Progress Note Assessment/Plan: Assessment: 22yo with IUP@ 37-6wks Active labor SROM - clear cat 1 FHR tracing GBS Negative Plan: reassess 2hr/PRN pain management PRN 07/19/18 11:30 Subjective/Intrapartum Course: 07/19/18 12:26 Pt states pain with contractions 10/10, but she is resting in the bed. She states she had some bloody fluid when she was sitting on the toilet approx 1 hour ago, unsure if it was her water. She has family @ [facility], supportive. Objective: 07/19/18 05:36 Patient ABO/Rh A POSITIVE 07/19/18 05:36 - SVE Dilation (cm): 6 Effacement (%): 90 Station: -1 Membranes: SROM Amniotic Fluid Color: Clear Oxytocin Orders Assessment - Pre-Induction/Augmentation Assessment Gestational Age: 37 week(s) and 6 day(s) ICD10 Worksheet Patient Problems: Problems Problem Status Onset Cellulitis of left foot Acute
[2018-07-19] MEDS ORDERED: fentaNYL 2MCG/ML/BUP 0.1% RTU 100 ML BAG EP ONE (12:31)
[2018-07-19] MEDS ORDERED: PHENYLEPHRINE HCL 100 MCG/ML SYR ONE (12:32)
[2018-07-19] MEDS ORDERED: NALOXONE HCL 0.4 MG/ML INJ IVP PRN (12:53)
[2018-07-19] MEDS ORDERED: ONDANSETRON 4 MG/2 ML VIAL IVP PRN (12:53)
[2018-07-19] MEDS ORDERED: PHENYLEPHRINE HCL 100 MCG/ML SYR IVP PRN (12:53)
--- NOTE | 2018-07-19 12:55 | PREANESOB ---
Obstetric Pre-Anesthesia Info - General Info Proposed Procedure: Labor Epidural : 2 Para: 0 MIGUELANGEL: 08/03/[birth year] Gestational Age: 37 week(s) and 6 day(s) - Labor Status Cervical Dilation per last OB SVE: 6 Station per last OB SVE: -1 Amniotic Fluid Color: Clear Labor Epidural: Yes Anesthesia Allergies/Adverse Reactions: Allergy/AdvReac Type Severity Reaction Status Date / Time No Allergies [NKDA] Allergy Verified 07/19/18 06:34 Home Medications: Medication Instructions Recorded Izlavlkl97/Iron/Folate8/Ps-Dha 1 each PO DAILY #12 cap.ir. 04/14/17 [Enbrace Hr Softgel] Visit Medications: Generic Name Dose Route Start Last Admin Trade Name Freq PRN Reason Stop Dose Admin Lactated Ringer's 1,000 mls @ 0 mls/hr 07/19/18 05:20 Lr IV 07/20/18 05:19 PRN PRN SEE PROTOCOL CONDITIONS Protocol Per Protocol Oxytocin/Lactated Ringer's 1,000 mls @ 125 mls/hr 07/19/18 05:20 Pitocin 20 Units/Lr (Premix) IV PRN PRN Post bleeding Ibuprofen 600 mg 07/19/18 05:20 Motrin PO ONCE PRN post , pain Lidocaine HCl 300 mg 07/19/18 05:20 Lidocaine Hcl 1% SC 01/15/19 05:19 ONCE PRN episiotomy Magnesium Sulfate 454 gm 07/19/18 05:20 Epsom Salt TP 01/15/19 05:19 Q1H PRN perineal discomfort Misoprostol 800 - 1,000 mcg 07/19/18 05:20 Cytotec [place] ONCE PRN Vaginal Atony/Bleeding [place] Oil 118 ml 07/19/18 05:20 Sweet Oil MISC 01/15/19 05:19 ONCE PRN perineal massage Discontinued Medications Generic Name Dose Route Start Last Admin Trade Name Freq PRN Reason Stop Dose Admin Ammonia (Aromatic Spirit) Confirm 07/19/18 06:04 Ammonia Aromatic Administered 07/19/18 06:05 Dose 1 each IH .STK-MED ONE Fentanyl/Bupivacaine HCl Confirm 07/19/18 12:31 Fentanyl/Bupivacaine/Ns 2 Mcg/Ml 0.1% (Premix Administered 07/19/18 12:32 Dose 100 ml EP .STK-MED ONE Lidocaine HCl Confirm 07/19/18 06:03 Lidocaine Hcl 1% Administered 07/19/18 06:04 Dose 300 mg .ROUTE .STK-MED ONE Misoprostol Confirm 07/19/18 06:04 Cytotec Administered 07/19/18 06:05 Dose 1,000 mcg .ROUTE .STK-MED ONE [place] Oil Confirm 07/19/18 06:03 Sweet Oil Administered 07/19/18 06:04 Dose 118 ml .ROUTE .STK-MED ONE Oxytocin Confirm 07/19/18 06:04 Pitocin Administered 07/19/18 06:05 Dose 40 unit .ROUTE .STK-MED ONE Phenylephrine HCl Confirm 07/19/18 12:32 Neosynephrine Administered 07/19/18 12:33 Dose 1,000 mcg .ROUTE .STK-MED ONE Terbutaline Sulfate Confirm 07/19/18 06:04 Brethine Administered 07/19/18 06:05 Dose 1 mg .ROUTE .STK-MED ONE - Vital Signs Height/Weight (Nursing): Height 165.1 cm Weight 87.543 kg - Focused Exam Neck exam: FROM Mallampati Score: Class 2 Mouth exam: normal dental/mouth exam Pulmonary: clear to auscultation Cardiovascular: regular rate and rhythym Labs: 07/19/18 05:36 Patient ABO/Rh A POSITIVE 07/19/18 05:36 - Plan Consent Signed and on Chart: Yes
[2018-07-19] MEDS ORDERED: LR 500 ML IV SCH (13:00)
[2018-07-19] MEDS ORDERED: fentaNYL 2MCG/ML/BUP 0.1% RTU 100 ML EP SCH (13:00)
[2018-07-19] MEDS ORDERED: LR 500 ML IV PRN (14:27)
[2018-07-19] MEDS ORDERED: OXYTOCIN/RINGERS LACTATE 500 ML IV SCH (14:30)
[2018-07-19] MEDS ORDERED: HYDROCORTISONE 0.5% CREAM TP PRN (17:14)
[2018-07-19] MEDS ORDERED: SIMETHICONE 80 MG TAB CHEW PO PRN (17:14)
--- NOTE | 2018-07-19 17:14 | OBDEL ---
Info Type: Vaginal Presentation at Delivery: Vertex L&D Analgesia/Anesthesia Type: Epidural GBS+: No - Hospital Course Intrapartum: 07/19/18 12:26 Pt states pain with contractions 10/10, but she is resting in the bed. She states she had some bloody fluid when she was sitting on the toilet approx 1 hour ago, unsure if it was her water. She has family @ [facility], supportive. Indications for Delivery: Spontaneous Labor, SROM Vaginal Delivery - Delivery Provider Delivery Physician/CNM: Anna Nino - Labor and Delivery Onset of Contractions Date: 07/19/18 Onset of Contractions Time: 00:00 Onset of Contractions Type: Spontaneous Rupture of Membranes Date: 07/19/18 Rupture of Membranes Time: 10:05 Rupture of Membranes Type: Spontaneous Amniotic Fluid Color: Clear Dilation Complete Date: 07/19/18 Dilation Complete Time: 16:27 Placenta Delivery Date: 07/19/18 Placenta Delivery Time: 16:56 Total Hours of Labor: 16 Laceration: 1st Degree Repair: 3-0, Vicryl Vaginal Sponge Count Correct: Yes Vaginal Needle Count Correct: Yes Vaginal Sweep Performed: Yes EBL: 200 Delivery Events: None - Medications Labor Augmentation/Induction Methods Used: Pitocin Labor Augmentation/Induction Indication: Inadequate Contraction Strength [place] Data MIGUELANGEL: 08/[birth year]18 Gestational Age: 37 week(s) and 6 day(s) Kelly Delivery Date: 07/19/18 Delivery Time: 16:50 Sex of Infant: Male Score (1 Min): 8 Score (5 Min): 9 ICD10 Worksheet Patient Problems: Problems Problem Status Onset (spontaneous vaginal delivery) Acute Cellulitis of left foot Acute - ICD10 Problem Qualifiers (1) (spontaneous vaginal delivery)
[2018-07-19] MEDS: ACETAMINOPHEN 325 MG TAB PO PRN (18:33)
--- NOTE | 2018-07-19 20:12 | POSTANESTH ---
Post Anesthetic Evaluation Cardiovascular Status: Normal, Stable Respiratory Status: Normal, Stable Level of Consciousness/Mental Status: Alert and Oriented Pain Control: Adequate, Prn Tx Ordered Nausea/Vomiting Control: Adequate, Prn Tx Ordered (Epidural End Time and Placenta Delivery Time is 16:56 07/19/2018)
[2018-07-19] MEDS: IBUPROFEN 600 MG TAB PO PRN (23:52)
[2018-07-20] MEDS: IBUPROFEN 600 MG TAB PO PRN ×3 (06:38→18:47)
--- NOTE | 2018-07-20 11:15 | OBPP ---
Progress Note Assessment/Plan: Assessment: 22 y/o P1 s/p PPD #1 Plan: Routine pp care Plan discharge tomorrow 07/20/18 11:10 Subjective/ Course: 07/20/18 11:13 Feeling good - going well. Pain well controlled with pain meds, vag bleeding wnl, tolerating activity, regular diet and voiding. Objective: 07/19/18 05:36 Patient ABO/Rh A POSITIVE 07/19/18 05:36 Temp Pulse Resp BP Pulse Ox 36.4 C 77 18 97/61 L 98 07/20/18 08:00 07/20/18 08:00 07/20/18 08:00 07/20/18 08:00 07/20/18 08:00 Uterine Position/Fundal Height: Umbilicus -1 Uterine Tone: Firm Physical Exam - Physical Exam EENT: PERRL/EOMI Respiratory: normal breath sounds Cardiac/Chest: regular rate, rhythm Abdomen: non-tender, soft Extremities: non-tender Skin: normal color Neuro/Psych: alert, normal mood/affect, oriented x 3
[2018-07-20] MEDS: ACETAMINOPHEN 325 MG TAB PO PRN (12:43)
[2018-07-20] MEDS: DOCUSATE SODIUM 100 MG CAP PO PRN ×2 (12:43→20:11)
[2018-07-21] MEDS: IBUPROFEN 600 MG TAB PO PRN (00:45)
[2018-07-21 08:23] VITALS: BP 102/67
[2018-07-21] MEDS: DOCUSATE SODIUM 100 MG CAP PO PRN (09:37)
--- NOTE | 2018-07-21 11:12 | OBGCSDC ---
General Delivery Information - General Info : 2 Para: 1 Abortions: 1 Type: Vaginal L&D Analgesia/Anesthesia Type: Epidural Admission Date: 07/19/18 Labs: Patient ABO/Rh A POSITIVE 07/19/18 05:36 Hct 37.7 % (38.0-47.0) L 07/19/18 05:36 - Hospital Course Intrapartum: 07/19/18 12:26 Pt states pain with contractions 10/10, but she is resting in the bed. She states she had some bloody fluid when she was sitting on the toilet approx 1 hour ago, unsure if it was her water. She has family @ [facility], supportive. : 07/20/18 11:13 Feeling good - going well. Pain well controlled with pain meds, vag bleeding wnl, tolerating activity, regular diet and voiding. 07/21/18 11:05 S) Pt doing well, reports min pain and bleeding. she is ambulating and voiding without difficulty. She is . She desires discharge home today. O) VSS, afebrile constitutional: WNWF, A&Ox3 HEENT: normocephalic, atraumatic, supple Heart: RRR, No murmur Chest: CTA-B Breasts: soft, nontender, [ ] engorged, nipples Abdomen: Soft, nontender Uterus: Firm at U-2 Lochia: Minimal rubra Perineum: Intact, healing well Extremities: Trace edema, and negative Josh's sign Neuro: Grossly normal A) 22 -year-old PPD#2 stable established; adam in P) Discharge home today Continue Pelvic rest x 6wks Discussed danger signs (infection, preeclampsia, depression, heavy bleeding, etc ) RTO in 2/4/6 weeks Vaginal - Delivery Provider Delivery Physician/CNM: Anna Nino - Diagnosis Labor: Spontaneous Rupture of Membranes Type: Spontaneous Amniotic Fluid Color: Clear Laceration: 1st Degree Repair: 3-0, Vicryl Delivery Events: None - Delivery EBL: [address] [place] Data MIGUELANGEL: 08/03/18 Gestational Age: 38 week(s) and 1 day(s) Kelly Delivery Date: 07/19/18 Delivery Time: 16:50 Sex of : Male [place] Weight (gm): 2665 g Score (1 Min): 8 Score (5 Min): 9 Discharge Information - Discharge Information Condition: Good Instruction/Follow Up: Two Weeks, Four Weeks, Six Weeks
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
[2018-07-21] MEDS ORDERED: EPSOM SALT 454 GM TP ONE ×2 (12:01→15:15)
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
== END 2018-07-21 17:00 | disposition home or self-care (01) | DRG 560 ==
LOC: FLD 04:41 → EEVIPCON 05:22 → OBSVTOIN 05:22 → FOB 20:20
PROVIDERS: ADMIT Advanced Practice Midwife; ATTEND Advanced Practice Midwife
PROC: 10E0XZZ Delivery of Products of Conception, External Approach (ICD-10-PCS; principal; 2018-07-19)
DX: O70.0 First degree perineal laceration during delivery (principal); Z63.0 Problems in relationship with spouse or partner; Z3A.38 38 weeks gestation of pregnancy; Z37.0 Single live birth
CPT/HCPCS: J2370; J2590; J3105